=== PATIENT | male | born 2000 ===

== ENCOUNTER 2024-09-26 23:13 | Observation (INO) | payer BC ==
[~2024-09-26] VITALS: Ht 170.2 cm; Wt 72.6 kg
[~2024-09-26 23:13] MED LIST: ALBU.083IS; CHOL10002 PO; ESCI10 PO; ESCI5 PO; Hair, Skin & N1 EACH; MONT4; PRED15SY PO
[2024-09-26] MEDS ORDERED: Diphth,Pertuss(Acell),Tet Vac 0.5 ML VIAL IM ONE (23:30)
[2024-09-27] VITALS (16 sets, daily range): BP systolic 99–127; BP diastolic 53–81
[2024-09-27] MEDS ORDERED: Morphine Sulfate 4 MG/1 ML Injection IV ONE (00:10)
[2024-09-27] MEDS ORDERED: Ketorolac Tromethamine 15mg Vial IV ONE (00:40)
[2024-09-27] MEDS ORDERED: Ondansetron HCl 2 MG / ML 2ML Vial IV PRN (01:00)
[2024-09-27] MEDS ORDERED: NS 1,000 ML IV SCH (01:00)
[2024-09-27] MEDS ORDERED: FentaNYL Citrate 50 MCG/ML 2 ML Injection IV PRN (01:00)
[2024-09-27] MEDS ORDERED: Ketorolac Tromethamine 15mg Vial IV PRN (01:00)
[2024-09-27 01:04] LABS: BASOPHILS ABSOLUTE AUTO 0.03 K/mm3 (0.00-0.23); BASOPHILS PERCENT AUTO 0 % (0-2); EOSINOPHILS ABSOLUTE AUTO 0.09 K/mm3 (0.00-0.68); EOSINOPHILS PERCENT AUTO 1 % (0-6); Hematocrit 40.1 % (37.0-53.0); Hemoglobin 13.2 g/dL (13.5-17.5); IMMATURE GRAN ABSOLUTE AUTO 0.08 K/mm3 (0.00-0.10); IMMATURE GRAN PERCENT AUTO 1 % (0-1); LYMPHOCYTES ABSOLUTE AUTO 1.96 K/mm3 (0.84-5.20); LYMPHOCYTES PERCENT AUTO 28 % (21-46); MONOCYTES ABSOLUTE AUTO 0.49 K/mm3 (0.16-1.47); MONOCYTES PERCENT AUTO 7 % (4-13); Mean Corpuscular HGB 29.1 pg (26.0-34.0); Mean Corpuscular HGB Conc 32.9 g/dL (31.5-36.5); Mean Corpuscular Volume 88 fL (80-100); Mean Platelet Volume 9.6 fL (9.1-12.4); NEUTROPHILS ABSOLUTE AUTO 4.27 K/mm3 (1.96-9.15); NEUTROPHILS PERCENT AUTO 62 % (41-73); Platelet Count 184 K/mm3 (150-400); RDW Coefficient Variation 13.1 % (11.7-14.2); RDW Standard Deviation 42.5 fL (35.1-46.3); Red Blood Cell Count 4.54 M/mm3 (4.30-5.90); White Blood Cell Count 6.92 K/mm3 (4.00-11.30)
[2024-09-27 01:25] LABS: Albumin, Blood 3.9 g/dL (3.4-5.0); Albumin/Globulin Ratio 1.2 (0.8-1.8); Bilirubin, Total 0.2 mg/dL (0.1-1.0); Bun/Creatinine Ratio 26.4 (12.0-20.0); Calcium, Blood 8.3 mg/dL (8.5-10.1); Creatinine, Blood 0.8 mg/dL (0.60-1.20); Globulin, Blood 3.3 g/dL (2.2-4.0); Potassium, Blood 3.8 mmol/L (3.5-5.5); Total Protein, Blood 7.2 g/dL (6.4-8.2)
[2024-09-27] MEDS ORDERED: Morphine Sulfate 4 MG/1 ML Injection IV PRN (02:05)
--- NOTE | 2024-09-27 02:07 | NUR ---
REPORT RECEIVED FROM ED RN SHEELA @2712. PT ARRIVED TO THE MEDICAL FLOOR IN A GURNEY. PT WAS SLID USING SLDING SHEET TO THE HOSPITAL BED. PT BROUGHT ALL HIS BELONINGS WITH HIM. KAREN MANZANO COMPLETED THE ADMISSION ASSESSMENT, SKIN CHECK WITH THIS HOT SEALING MACHINE OPERATOR. @5041 BY THE BEDSIDE. NEW VERBAL ORDERS RECEIVED: MORPHINE IV 2-4MG Q6HRS AND ONE TIME DOSE OF CEFAZOLIN 1G. ENTERED TO [facility] BY NATACHA JONES. RIGHT LEG DRESSED AND COVERED, LEG IS ELEVATED WITH TWO PILLOWS ABOVE THE HEART LEVEL. EDUCATED TACTICAL DEBRIEFER LIGHT. BEDSIDE URINAL GIVEN TO THE PT. EDUCATED ON SMOKE FREE POLICY. BED AT THE LOWEST POSITION, CALL LIGHT WITHIN REACH. PT IS A/O X4, ABLE TO MAKE HIS NEEDS KNOWN AND COOPERATIVE WITH CARE.
[2024-09-27] MEDS ORDERED: CeFAZolin Sodium 1,000 MG in NS 50 ML IV ONE (02:10)
[2024-09-27] MEDS ORDERED: NS 250 ML IV PRN (03:10)
[2024-09-27] MEDS ORDERED: Docusate Sodium/Senna 1 Tab PO PRN (08:50)
[2024-09-27] MEDS ORDERED: Polyethylene Glycol 3350 17 gm PO PRN (08:50)
[2024-09-27] MEDS ORDERED: Zolpidem Tartrate 5 MG Tab PO PRN (08:50)
[2024-09-27] MEDS ORDERED: HYDROmorphone HCl/Pf 1MG SYR IV ONE (10:45)
[2024-09-27] MEDS ORDERED: OxyCODONE HCL 5 MG TAB PO PRN (10:50)
[2024-09-27] MEDS ORDERED: HYDROmorphone HCl/Pf 1MG SYR IV PRN (10:55)
[2024-09-27] MEDS ORDERED: Acetaminophen 325 MG TABLET PO PRN (10:55)
[2024-09-27] MEDS ORDERED: CefTRIAXone Sodium 2,000 MG in NS 100 ML IV SCH (14:30)
[2024-09-27] MEDS ORDERED: Lactated Ringer's 1,000 ML IV SCH (16:00)
--- NOTE | 2024-09-27 16:37 | NUR ---
TRANSFER NOTE/SHIFT SUMMARY PATIENT A/OX4, ABLE TO MAKE NEEDS KNOWN. PLEASANT AND COOPERATIVE WITH CARE. HAS REMAINED BEDBOUND D/T PAIN FROM RIGHT REID LACERATION. DR. IRENE CONSULTED THIS AM, ABLE TO COME TO BEDSIDE THIS AFTERNOON. PATIENT REMAINS NPO FOR I&D. NOTIFIED DR. LOERA REGARDING PAIN MEDICATION REGIMEN AND ORDERS WERE UPDATED. PRN OXYCODONE AND IV DILAUDID ADMINISTERED PER AUG. REPORT GIVEN TO JIN ON SURGICAL FLOOR. PATIENT HAS BEEN TRANSPORTED TO I&D [facility]. ALL BELONGINGS SENT TO PATIENT'S NEW ROOM IN 229. NO OTHER CONCERNS AT THIS TIME.
[2024-09-27] MEDS ORDERED: Midazolam HCl 1MG / ML 2ML Vial ONE (16:38)
[2024-09-27] MEDS ORDERED: Bupivacaine HCl 2.5 MG/ML 10ML P/F Injection ONE (16:48)
[2024-09-27] MEDS ORDERED: Dexmedetomidine HCL 200 MCG / 2 ML ONE (16:49)
[2024-09-27] MEDS ORDERED: propofoL 20 ML IV ONE (16:58)
[2024-09-27] MEDS ORDERED: FentaNYL Citrate 50 MCG/ML 2 ML Injection ONE (16:58)
--- NOTE | 2024-09-27 16:58 | NUR ---
TIME OUT 1600 NERVE BLOCK TIME OUT PERFORMED, PROCEDURE, PROVIDER, PT AND ALLERGIES CONFIRMED.
[2024-09-27] MEDS ORDERED: Ondansetron HCl 2 MG / ML 2ML Vial ONE (17:20)
[2024-09-27] MEDS ORDERED: Dexamethasone Sod Phos 10 MG/ML 1ML VIAL ONE (17:20)
[2024-09-27] MEDS ORDERED: ePHEDrine Sulfate 50 MG/ML 1ML Injection ONE (17:20)
[2024-09-27] MEDS ORDERED: Metoclopramide HCl 5MG / ML 2ML Vial ONE (17:21)
[2024-09-27] MEDS ORDERED: Atropine Sulfate 0.4 MG/1 ML Vial ONE (17:24)
[2024-09-27] MEDS ORDERED: CeFAZolin Sodium 1000 mg Vial ONE (17:35)
[2024-09-27] MEDS ORDERED: Famotidine 20 MG Tab PO SCH (21:00)
[2024-09-28] MEDS ORDERED: CeFAZolin Sodium 2,000 MG in NS 100 ML IV SCH (02:00)
[2024-09-28 04:55] VITALS: BP 99/60
[2024-09-28 05:12] LABS: Hematocrit 36.9 % (37.0-53.0); Hemoglobin 12.2 g/dL (13.5-17.5)
[2024-09-28 05:39] LABS: Albumin, Blood 3.4 g/dL (3.4-5.0); Albumin/Globulin Ratio 1.2 (0.8-1.8); Bilirubin, Total 0.4 mg/dL (0.1-1.0); Bun/Creatinine Ratio 14.3 (12.0-20.0); Calcium, Blood 8.2 mg/dL (8.5-10.1); Creatinine, Blood 0.77 mg/dL (0.60-1.20); Globulin, Blood 2.8 g/dL (2.2-4.0); Phosphorus, Blood 4.4 mg/dL (2.5-4.9); Potassium, Blood 4.5 mmol/L (3.5-5.5); Total Protein, Blood 6.2 g/dL (6.4-8.2)
[2024-09-28 07:05] VITALS: BP 93/47
--- NOTE | 2024-09-28 07:27 | NUR ---
SHIFT SUMMARY NOC. PT POD 1 FOR I&D OF RIGHT REID AFTER LACERATION. PT RECEIVED A POPLITEAL SCIATIC BLOCK AND REPORTS CONTINUED NUMBNESS TO RLE. CAP REFILL INTACT. PT UNABLE TO WIGGLE TOES IN RLE. ABLE TO MOVE ALL OTHER EXTREMITIES. PT MEDICATED FOR PAIN WITH REPORTED RELIEF OF SX. PT NOT OOB THIS SHIFT, VOIDING VIA URINAL, NWB ON RLE ORDERED. PT MAKES NEEDS KNOWN, CALL LIGHT IN REACH.
[2024-09-28 15:08] VITALS: BP 103/55
[2024-09-28] MEDS ORDERED: HYDROmorphone HCl/Pf 1MG SYR IV PRN (16:15)
--- NOTE | 2024-09-28 16:27 | NUR ---
PT UP WALKING HALLWAY WITH USE OF WALKER INDEPENDENTLY WITH FATHER. WILL CONTINUE TO MONITOR.
--- NOTE | 2024-09-28 17:34 | NUR ---
END OF SHIFT PT EATING DINNER. DENIES COMPLAINTS. PT RECENTLY UP FOR EXTENDED WALK USING WALKER WITH FATHER. DENIES COMPLAINTS.
[2024-09-28 20:09] VITALS: BP 119/61
[2024-09-28] MEDS ORDERED: Acetaminophen 325 MG TABLET PO SCH (21:00)
[2024-09-28] MEDS ORDERED: Ibuprofen 400 MG Tab PO SCH (21:00)
[2024-09-29 04:46] VITALS: BP 93/47
[2024-09-29 05:14] LABS: Hematocrit 36.9 % (37.0-53.0); Hemoglobin 12.1 g/dL (13.5-17.5)
--- NOTE | 2024-09-29 05:25 | NUR ---
ROUNED ON PT FOR; PAIN ASSESSMENT AT 09/14. PT DECLINES NEED FOR PAIN MEDICATIONS AT THIS TIME. EDUCATED PT ON IMPORTANCE OF PAIN CONTROL. INSTRUCTED TO NOTIFY RN IF PAIN INCREASES.
[2024-09-29 05:40] LABS: Bun/Creatinine Ratio 15.5 (12.0-20.0); Calcium, Blood 8.3 mg/dL (8.5-10.1); Creatinine, Blood 1.16 mg/dL (0.60-1.20); Potassium, Blood 4.1 mmol/L (3.5-5.5)
--- NOTE | 2024-09-29 06:21 | NUR ---
BOILER CONTROL ROOM OPERATOR SUMMARY PT IS A/OX4. ABLE TO MAKE NEEDS KNOWN. PT C/O INTENSE PAIN TO RLE. PT REPORTS SENSATION DIMINISHED IN RLE DIGITS, BUT INTACT ABOVE THE KNEE. TOES ARE WARM TO TOUCH AND CAP REFIL INTACT. DRESSING IS CDI. PT GIVEN MEDS PER MAR FOR PAIN MANAGEMENT. PT REPORTED IMPROVED PAIN THIS MORNING AND DENIED NEED FOR PAIN MEDS. CALL LIGHT ACCESSIBLE. CARE WILL CONTINUE UNTIL REPORT GIVEN TO ONCOMING NURSE.
[2024-09-29 07:30] VITALS: BP 89/54
[2024-09-29 07:32] VITALS: BP 94/56
[2024-09-29] MEDS ORDERED: FT SENNA-S 8.61 EACH PO (08:55)
[2024-09-29] MEDS ORDERED: Acetaminophen325 M1 PO (08:55)
[2024-09-29] MEDS ORDERED: OXAYDO5 M7 PO (08:56)
[2024-09-29] MEDS ORDERED: IBU800 MG PO (08:56)
--- NOTE | 2024-09-29 09:23 | NUR ---
DISCHARGED HOME, INSTRUCTIONS GIVEN TO PATIENT AND FRIEND, BOTH STATED UNDERSTANDING OF MEDICATIONS, FOLLOW UP, AND WOUND CARE. BOTH DENIED FURTHER QUESTIONS, RX FAXED TO [facility] TO CARE
== END 2024-09-29 09:32 | disposition home or self-care (01) ==
LOC: ER 23:13 → SURS 23:14 → MEDS 23:14 → ERHOLD 23:14 → MEDS 09-27 01:38 → SURS 09-27 16:09
PROVIDERS: Hospitalist; Orthopaedic Surgery Sports Medicine; ADMIT Internal Medicine
PROC: 0LQN0ZZ Repair Right Lower Leg Tendon, Open Approach (ICD-10-PCS; principal; 2024-09-27 15:30)
DX: S86.821A Laceration of other muscle(s) and tendon(s) at lower leg level, right leg, initial encounter (principal); W22.8XXA Striking against or struck by other objects, initial encounter; Z79.899 Other long term (current) drug therapy
CPT/HCPCS: 12034; 29515; 36415; 73590; 80048; 80053; 83735; 84100; 85014; 85018; 85025; 90471; 90715; 96365; 96367; 96374-59; 96375; 96375-59; 96376; 97116; 97162; 97165; 97530; 99284-25; A9270; G0378; J0461; J0690; J0696; J1100; J1171; J1885; J2250; J2270; J2405; J2704; J2765; J3010; J7030